=== PATIENT | female | born 1995 | race Caucasian/White ===

== ENCOUNTER 2017-10-30 21:50 | Inpatient (IN) | payer MEDICAID ==
[2017-10-30] MEDS ORDERED: Lactated Ringer's 1,000 ML IV ONE (22:09)
[2017-10-30] MEDS ORDERED: Penicillin G 5 Million Unit Vial IVPB ONE (22:09)
--- NOTE | 2017-10-30 22:43 | OBHP ---
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: denies hx of abnoral pap, fibroids, ovarian cyst, STI PMH: Denies PSH: denies FHX: non contbuitory MEDS: PNV NKDA A/P @39.5 wks GA IOL for oligohydramnios admit as per pmd npo, ivf admission labs contoto cand efm cervdil Pelvic Type - PN: Adequate Extremities - PN: Normal Abdomen - PN: Normal Back - PN: Normal Breast - PN: Not Done Lungs - PN: Normal Heart - PN: Normal Thyroid - PN: Not Done Neurologic - PN: Normal HEENT - PN: Normal General - PN: Normal Presentation-Admit: Vertex FHR - Baseline A Provider: 150 Membranes, Provider: Intact Contraction Comments Provider: none Gestation - Est Wks by US: 39.5 IP Hx Assessment: The History has been Reviewed and is Current EGA AdmitDate IP: 39.5 Vital Signs Provider: Reviewed; Within Normal Limits IP Chief Complaint: Other NICHD Variability Prov Fetus A: Moderate 6-25bpm FHR Category Provider Fetus A: Category I NICHD Decel Fetus A IP Provider: None Dilatation, Provider: 0 Effacement, Provider: 0 Station, Provider: -3 Genitourinary Exam: Normal DTRs - PN: Normal
[2017-10-30] MEDS: Lactated Ringer's 1,000 ML IV SCH (22:44)
[2017-10-30 22:57] LABS: BASO % 0.2 % (0.0-2.0); EOS # 0.1 K/uL (0.0-0.7); EOS % 0.7 % (0.0-4.0); LYMPH # 2.4 K/uL (1.0-4.3); LYMPH % 30.6 % (20.0-40.0); MEAN CELL VOLUME 81.5 fL (81.0-99.0); MEAN CORPUSCULAR HEMOGLOBIN 27.8 pg (27.0-31.0); MEAN CORPUSCULAR HGB CONC 34.1 g/dL (33.0-37.0); MEAN PLATELET VOLUME 8.1 fL (7.2-11.7); MONO # 0.6 K/uL (0.0-0.8); MONO % 7.9 % (0.0-10.0); NEUT # 4.7 K/uL (1.8-7.0); NEUT % 60.6 % (50.0-75.0); NRBC % 0.1 % (0.0-2.0); RBC 3.97 Mil/uL (3.80-5.20); RED CELL DISTRIBUTION WIDTH 15.3 % (11.5-14.5); WHITE BLOOD COUNT 7.8 K/uL (4.8-10.8)
[2017-10-30 23:07] LABS: ALB/GLOB RATIO 1.1 (1.0-2.1); ALBUMIN 3.5 g/dL (3.5-5.0); ALT/SGPT 17 U/L (9-52); AST/SGOT 13 U/L (14-36); BLOOD UREA NITROGEN 9 mg/dL (7-17); GFR AFRICAN-AMERICAN > 60; GFR NON-AFRICAN AMERICAN > 60
[2017-10-30 23:32] VITALS: BMI 31.6
[2017-10-30 23:51] LABS: SQUAMOUS EPITHIAL 19 /hpf (0-5); URINE BACTERIA RARE (<OCC); URINE BILIRUBIN NEGATIVE (NEGATIVE); URINE BLOOD NEGATIVE (NEGATIVE); URINE CLARITY Hazy (Clear); URINE COLOR Yellow (YELLOW); URINE GLUCOSE (UA) NORMAL (Normal); URINE LEUKOCYTE ESTERASE TRACE Leu/uL (Negative); URINE PROTEIN NEGATIVE (NEGATIVE); URINE UROBILINOGEN NORMAL mg/dL (0.2-1.0)
[2017-10-31] MEDS: Lactated Ringer's 1,000 ML IV SCH (06:06)
--- NOTE | 2017-10-31 09:30 | OBPN ---
Datetime: 10/31/2017 09:22 IP Progress Impression: Reassuring heart rate IP Progress Plan: Induction IP Progress Note Comment: s: c/o pain 01/17 requesting epidural. states pain of increased intensity since 7am. denies srom i: induction for decreased sophie p: cervidel removed. pt d/w dr martinez. Dilatation, Provider: 0 Effacement, Provider: 30 Station, Provider: -3 Datetime: 10/30/2017 22:36 Membranes, Provider: Intact Contraction Comments Provider: none FHR - Baseline A Provider: 150 Gestation - Est Wks by US: 39.5 Presentation-Admit: Vertex Vital Signs Provider: Reviewed; Within Normal Limits FHR Category Provider Fetus A: Category I NICHD Variability Prov Fetus A: Moderate 6-25bpm NICHD Decel Fetus A IP Provider: None
[2017-10-31] MEDS ORDERED: Bupivacaine HCl/FentaNYL Cit 100 ML EPI ONE (09:31)
[2017-10-31] MEDS ORDERED: Bupivacaine 0.25% 20 ML INJ IJ ONE (09:52)
[2017-10-31] MEDS ORDERED: Oxytocin 30 UNIT 30 UNITS/500 ML BAG IV ONE (14:45)
[2017-10-31] MEDS ORDERED: Oxytocin 20 units in LR 2,000 ML IV ONE (15:28)
[2017-10-31] MEDS ORDERED: Sodium Citrate/Citric Acid 15 ml Sol ONE (15:29)
[2017-10-31] MEDS ORDERED: Oxytocin 10 Units/ml Inj ONE (15:30)
[2017-10-31] MEDS ORDERED: cefOXitin IV 2 gm in Saline 2 GM/50 ML BAG IVPB ONE (15:32)
[2017-10-31] MEDS ORDERED: Lidocaine 2% MPF (5 ml) Inj ONE (15:58)
[2017-10-31] MEDS ORDERED: cefOXitin IV 2 gm in Dextrose 2 GM/50 ML BAG IVPB SCH (16:00)
[2017-10-31] MEDS ORDERED: EPINEPHrine 1 mg/ml (1:1000) Inj ONE (16:01)
[2017-10-31] MEDS ORDERED: Sodium Citrate/Citric Acid 15 ml Sol PO ONE (16:05)
[2017-10-31] MEDS ORDERED: ceFAZolin IV 1 gm in Dextrose 1 GM/50 ML BAG IVPB ONE (16:05)
[2017-10-31] MEDS ORDERED: Lactated Ringer's 1,000 ML IV ONE (16:05)
[2017-10-31] MEDS ORDERED: Morphine 1 mg/ml preservative-free Inj(Duramorph) ONE (16:19)
[2017-10-31] MEDS ORDERED: Oxycodone/Acetaminophen 5/325 mg Tab PO PRN (17:53)
--- NOTE | 2017-10-31 17:58 | OBADHP ---
Datetime: 10/31/2017 17:43 Admit Comment, IP Provider: 22 yr old FOR INDUCTION OF LABOR FOR OLIGOHYDRAMNIOS, EDC 10/24/17 BY DATES AND 06/04/17 BY EARLY SONOGRAM. PELVIC SONOGRAM DONE ON AND SHOWED DEC AMT OF AMNIO TIC FLUID, ADMITTED FOR INDUCTION OF LABOR ON 10/30/17. WITH CERVIDIL 10 MG PER VAGINA. Extremities - PN: Normal Abdomen - PN: Normal Back - PN: Normal Breast - PN: Normal Lungs - PN: Normal Heart - PN: Normal Thyroid - PN: Normal Neurologic - PN: Normal HEENT - PN: Normal General - PN: Normal Weight - Estimated: 2200 Presentation-Admit: Vertex FHR - Baseline A Provider: 150-180 Gestation - Est Wks by US: 39.6 IP Hx Assessment: The History has been Reviewed and is Current NICHD Variability Prov Fetus A: Minimal - Undetectable to <5bpm FHR Category Provider Fetus A: Category I NICHD Decel Fetus A IP Provider: Variable Genitourinary Exam: Normal DTRs - PN: Normal IP Admit Plan: Admit to unit; Initiate labor protocol Datetime: 10/31/2017 15:28 Vital Signs Provider: Reviewed; Within Normal Limits Dilatation, Provider: 1.5cm Effacement, Provider: 60 Station, Provider: -2 IP Adm Impression: Term, intrauterine Datetime: 10/30/2017 22:36 Pelvic Type - PN: Adequate Membranes, Provider: Intact Contraction Comments Provider: none IP Chief Complaint: Other EGA AdmitDate IP: 39.5
--- NOTE | 2017-10-31 18:05 | OBPN ---
Datetime: 10/31/2017 17:43 IP Progress Impression: Arrest of dilatation/descent; Non-reassuring heart rate IP Informed Consent Obtain: Section Delivery; Risks, Benefits and Alternatives Discussed IP Procedures: Epidural Placement FHR - Baseline A Provider: 150-180 Gestation - Est Wks by US: 39.6 Weight - Estimated: 2200 Presentation-Admit: Vertex Vital Signs Provider: Reviewed; Within Normal Limits FHR Category Provider Fetus A: Category I NICHD Variability Prov Fetus A: Minimal - Undetectable to <5bpm Dilatation, Provider: 1-2 CM Effacement, Provider: 70% Station, Provider: -3 NICHD Decel Fetus A IP Provider: Variable Datetime: 10/31/2017 15:28 IP Progress Note Comment: called by nurse to eval pt w/ variable decels. nurse had called dr tanvir zaragoza who requested eval by me I: 39.6wk induction for oligo o: [id number] variable decel w/ harman to 60 and max dura of 120min w/ pit @ 2mu p: scalp stim when decel had resolved pit d/c dr martinez called and advised of fms categ 2 and to come in for definitive management of pt
--- NOTE | 2017-10-31 18:14 | OBDS ---
DELIVERY PERSONNEL Delivery Doctor: Myriam Stewart MD Scrub Nurse: Carmel Hernandez Watch And Clock Repairer: Delfin Evangelista RN Anesthesiologist: REGINE MATERNAL INFORMATION Delivery Anesthesia: Spinal Medications in Delivery: PITOCIN 20 Estimated Blood Loss (ml): 400 Placenta Cultured: Yes Maternal Complications: Other Other Maternal Complications: INTOLARANCE TO LABOR Provider Comments: 22 YR OLD g1p 0 FOR FAILED INDUCTION OF LABOR FOR OLIGOHYDRAMIOS AND NON REASSURR ING HEART PATTERNS. PATIENT UNDERWENT A PRIMARY LTCS UNDER A CONTINOUS EPIDURAL ANESTHESIA. DEL VERING TO A LIVE BABY GIRL 9/9 . LABOR SUMMARY EDC: 11/01/2017 00:00 No. Babies in Womb: 1 Attempted: No Labor Anesthesia: Epidural LABOR INFORMATION Reason for Induction: Oligohydramnios Cervical Ripening Agents: Cytotec @ 25 mcg po Oxytocin: Induction Group B Beta Strep: Negative Antibiotics # of Doses: 1 Antibiotics Time of Last Dose: 15;50 Steroids Given: None Reason Steroids Not Administered: Not Applicable MEMBRANES Membranes Rupture Method: Artificial Rupture of Membranes: 10/31/2017 16:27 Length of Rupture (hrs): 0.05 Amniotic Fluid Color: Clear Amniotic Fluid Amount: Moderate Amniotic Fluid Odor: Normal STAGES OF LABOR Stage 3 hrs: 0 Stage 3 min: 1 VAGINAL DELIVERY Episiotomy: None Laceration Extension: N/A Laceration Type: None CSECTION DELIVERY Primary Indication: Nonreassuring Status Secondary Indication: N/A CSection Urgency: Emergency CSection Incidence: Primary Labor: Labor Elective: Nonelective CSection Incision: Lower Uterine Transverse BABY A INFORMATION Delivery Date/Time: 10/31/2017 16:30 Method of Delivery: Born in Route : No : N/A Forceps: N/A Vacuum Extraction: N/A Shoulder Dystocia : No SHOULDER DYSTOCIA BABY A Delivery Date/Time: 10/31/2017 16:30 PRESENTATION/POSITION BABY A Presentation: Cephalic Cephalic Presentation: Vertex Breech Presentation: N/A PLACENTA INFORMATION BABY A Placenta Delivery Time : 10/31/2017 16:31 Placenta Method of Delivery: Manual Removal Placenta Status: Delivered SCORES BABY A Heart Rate 1 min: >100 bpm Resp Effort 1 min: Good Cry Reflex Irritability 1 min: Cough or Sneeze or Pulls Away Muscle Tone 1 min: Active Motion Color 1 min: Body Caban, Extremities Blue Resuscitation Effort 1 min: Tactile Stimulation SCORE 1 MIN: 9 Heart Rate 5 min: >100 bpm Resp Effort 5 min: Good Cry Reflex Irritability 5 min: Cough or Sneeze or Pulls Away Muscle Tone 5 min: Active Motion Color 5 min: Body Caban, Extremities Blue SCORE 5 MIN: 9 INFANT INFORMATION BABY A Gestational Age at Delivery: 39.6 Gestational Status: Term Infant Outcome : Liveborn Infant Condition : Stable Sex: Female IDENTIFICATION/MEDS BABY A ID Band Number: [id number] Sensor Number: [id number] WEIGHT/LENGTH BABY A Infant Birthweight (gms): 2900 Infant Weight (lb): 6 Infant Weight (oz): 6 Infant Length Inches: 18.50 Length cms: 47.0 CORD INFORMATION BABY A No. Cord Vessels: 3 Nuchal Cord : N/A Cord Blood Taken: Yes Infant Suction: Mouth; Nose ASSESSMENT BABY A Infant Complications: None Physical Findings at Delivery: Within Normal Limits Respirations: Appears Normal Tower Erector Helper/ALS Called : No Care By: isreal Transferred To: Remains with Mother
[2017-11-01] MEDS: Simethicone 80 mg Chewtab PO SCH ×5 (02:00→21:41)
[2017-11-01] MEDS: Oxycodone/Acetaminophen 5/325 mg Tab PO PRN ×5 (05:40→23:05)
--- NOTE | 2017-11-01 05:51 | OP ---
PROCEDURE DATE: 10/31/2017 PREOPERATIVE DIAGNOSES: 1. , intrauterine, term. 2. Oligohydramnios. 3. Failed induction of labor. 4. Non-reassuring heart patterns. POSTOPERATIVE DIAGNOSES: 1. , intrauterine, term. 2. Oligohydramnios. 3. Failed induction of labor. 4. Non-reassuring heart patterns. PROCEDURE: Primary low-transverse section. ANESTHESIA: Epidural, continuous. ANESTHESIOLOGIST: Dr. Alcantar. SURGEON: Stefania Wyatt MD SENIOR DATABASE ADMINISTRATOR: Dr. sea WHITTEN____ OPERATIVE FINDINGS: The cervix is firm, closed 1 to 2 cm thick and long and vertex and station -3. The bag of water was intact and it was noted to be scanty in amount. Both fallopian tubes and ovaries are grossly normal. OPERATIVE TECHNIQUE: The patient was prepped and draped in the usual sterile manner under continuous epidural anesthesia. Pfannenstiel skin incision was made. Incision was carried down to the subcutaneous layer. Fascia was cut in the usual manner and muscle splitting was performed. Peritoneum was picked up and opened thereby exposing the abdominal contents. A bladder flap was made. A low transverse section was performed delivering a live baby girl with score of 9 and 9 from an LOT position. Cord blood was obtained and was sent for a cord blood pH. After establishing hemostasis, the placenta was thereby removed manually and was sent to the laboratory for a histopathologic examination. The uterus was lifted out of the abdominal cavity and was examined, and the lower uterine segment of the uterus was repaired in two layers by using 0 chromic catgut sutures, the first layer was a continuous interlocking suture and the second layer was a continuous imbricating layer for hemostatic purposes. After establishing hemostasis, the bladder flap was re-sutured WITH 2-0 CHROMIC CATGUT SUTURES and then after complete lap and sponge count, the abdominal cavity was irrigated with Ringer's lactate solution, and after a second lap and sponge counts were announced to be correct, the abdominal cavity was closed in the following manner. Peritoneum was closed by using a 0 chromic catgut using continuous sutures. The muscles were reapproximated by using 0 chromic catgut using interrupted sutures and the fascial layer was closed by 0 Dexon using continuous sutures and interrupted sutures applied in BETWEEN stitches. After establishing hemostasis, the subcutaneous layer was closed with 2-0 plain catgut using continuous sutures, and the skin was reapproximated by using 3-0 Biosyn sutures using subcuticular stitches. The patient was transferred to recovery room in stable condition. Estimated blood loss is around 400 mL. Specimen consisted of the cord blood pH as well as the placenta was sent to the laboratory for histopathological examination. The patient was with thromboelastic stockings while in the operating room as well as in the recovery room, using the compression stockings which was applied on both lower extremities. The Jung catheter was draining a good amount of approximately 200 mL of clear shae-colored urine. The patient was in stable condition and was transferred to the recovery room. Stefania Wyatt MD MTDTim
[2017-11-01 07:36] LABS: HEMOGLOBIN 9.6 g/dL (11.0-16.0); MEAN CELL VOLUME 82.7 fL (81.0-99.0); MEAN CORPUSCULAR HEMOGLOBIN 28.7 pg (27.0-31.0); MEAN CORPUSCULAR HGB CONC 34.7 g/dL (33.0-37.0); MEAN PLATELET VOLUME 8.3 fL (7.2-11.7); RBC 3.34 Mil/uL (3.80-5.20); RED CELL DISTRIBUTION WIDTH 15.4 % (11.5-14.5); WHITE BLOOD COUNT 9.7 K/uL (4.8-10.8)
[2017-11-01] MEDS: Prenatal Multivit/Folic Acid/Iron Tab PO SCH (09:54)
--- NOTE | 2017-11-01 14:32 | OBPPN ---
Datetime: 11/01/2017 14:21 PP Pain Prov: Within normal limits PP Nausea Prov: Denies PP Flatus Prov: Yes PP BM Prov: No PP Breasts Prov: Normal PP Heart Prov: Normal PP Lungs Prov: Normal PP Abdomen/Uterus Prov: Normal PP Lochia Prov: Normal PP Vulva/Perineum Prov: Normal PP CVA Tenderness Prov: Normal PP Extremities Prov: Normal PP C/S Incision Prov: Normal PP Impression Prov: Normal progression PP Plan Prov: Continue present management PP Progress Note Prov: 1ST POSTOP DAY : AMBULATORY, AFEBRILE, BREASTS FEEDING HER BABY. HEART AND L UNGS NORMAL, ABDOMEN IS SOFT, DRESSINGS REMOVED, WOUND OPEN TO ROOM AIR, STERILE STRIPS IN PLACE, NO BM YET, VOIDED FREELY, EXTREMITIES NO EDEMA, NO TENDERNESS . HB 9 GMS, HCT 29 % . ON ORAL HEMATINICS. AND KEFLEX 500 MG QID FOR 7 DAYS. IP PP Procedures: None Vital Signs Provider PP: Reviewed
[2017-11-02] MEDS: Oxycodone/Acetaminophen 5/325 mg Tab PO PRN ×5 (04:11→21:22)
[2017-11-02] MEDS: Simethicone 80 mg Chewtab PO SCH ×5 (09:36→22:05)
[2017-11-02] MEDS: Prenatal Multivit/Folic Acid/Iron Tab PO SCH (09:36)
--- NOTE | 2017-11-02 14:25 | OBPPN ---
Datetime: 11/02/2017 14:18 PP Pain Prov: Within normal limits PP Nausea Prov: Denies PP Flatus Prov: Yes PP BM Prov: No PP Breasts Prov: Normal PP Heart Prov: Normal PP Lungs Prov: Normal PP Abdomen/Uterus Prov: Normal PP Lochia Prov: Normal PP Vulva/Perineum Prov: Normal PP CVA Tenderness Prov: Normal PP Extremities Prov: Normal PP C/S Incision Prov: Normal PP Progress Prov: Normal PP Impression Prov: Normal progression PP Plan Prov: Continue present management PP Progress Note Prov: 2ND POSTOP DAY : AMBULATORY, AFEBRILE , BREASTS ARE SOFT, LACTATING HER BABY, ABDOMEN IS SOFT, STERILE STRIPS IN PLACE, WOUND WELL COAPTATED. LOCHIA MINIMAL, EXTREMITIES NO EDEMA , NO TENDERNESS. NO BM YET, DULCOLOA SUPPOSITORY ORDERED TODAY. FOR DISCHARGED HOME IN AM WITH PRESCR IPTIONS FOR PAINS, ANTIBIOTICS FOR 7 DAYS [[id number] MG QID] . TO THE OFFICE FOR FOLLOW UP IN 2 WEEK S. IP PP Procedures: None Vital Signs Provider PP: Reviewed; Within Normal Limits
--- NOTE | 2017-11-02 14:29 | OBDCSUM ---
Datetime: 11/02/2017 14:25 Discharged to, Provider: Home Follow up at, Provider: Myriam CUMMINGS Disch Instr Activity: Normal activity Disch Instr Diet: Regular Discharge Instructions, Provider: Routine instructions given Discharge Diagnosis, Provider: Term Delivered Discharge Time: 11/03/2017 10:00 Follow up in weeks, Provider: 2 WEEKS Contraception discussed, Prov: Yes Disch Activity Restrictions: Minimize stair-climbing; No sexual activity; Nothing in vagina - Interc ourse, tampons, douche
[2017-11-03] MEDS: Oxycodone/Acetaminophen 5/325 mg Tab PO PRN ×2 (06:06→10:04)
[2017-11-03] MEDS: Simethicone 80 mg Chewtab PO SCH (10:01)
[2017-11-03] MEDS: Prenatal Multivit/Folic Acid/Iron Tab PO SCH (10:01)
[2017-11-03 15:06] VITALS: BP 123/70; PULSE 90; RESP 18; TEMP 98; O2SAT 99
== END 2017-11-03 11:05 | disposition home or self-care (01) | DRG 371 ==
LOC: C.EROB 21:50 → C.4D 22:09 → C.4M 10-31 20:07
PROVIDERS: ADMIT Obstetrics & Gynecology; ATTEND Obstetrics & Gynecology
PROC: 10D00Z1 Extraction of Products of Conception, Low, Open Approach (ICD-10-PCS; principal; 2017-10-31)
PROC: 3E0P7VZ Introduction of Hormone into Female Reproductive, Via Natural or Artificial Opening (ICD-10-PCS; 2017-10-31)
DX: O41.03X0 Oligohydramnios, third trimester, not applicable or unspecified (principal); O76 Abnormality in fetal heart rate and rhythm complicating labor and delivery; O62.1 Secondary uterine inertia; O61.9 Failed induction of labor, unspecified; Z3A.39 39 weeks gestation of pregnancy; Z37.0 Single live birth